=== PATIENT | female | born 1935 | race Caucasian/White ===

== ENCOUNTER 2016-09-07 13:31 | Emergency (ER) | payer OTHER ==
[~2016-09-07 13:31] MED LIST: AUGMENTIN250 MG PO; AZITHROMYCIN250 MG PO; CYMBALTA 30MG C30 MG PO; HYDRALAZINE25 MG PO; LASIX20 MG PO; NAMENDA 10MG TA10 MG PO; SEROQUEL 25MG T25 MG PO; TRANDATE100 MG PO
[2016-09-07 14:05] LABS: BASOPHIL 0.7 % (0-2); EOSINOPHIL 7.3 % (0-7); HCT 35.7 % (37.0-47.0); HGB 11.9 g/dl (12.5-16.0); LYMPHOCYTE 25.3 % (15-48); MCH 29.4 pg (25.0-31.0); MCHC 33.3 g/dL (32.0-36.0); MCV 88.1 fL (78.0-100.0); MONOCYTE 11.5 % (0-12); MPV 8.7 fL (6.0-9.5); NEUTROPHIL 55.2 % (41-80); PLT 418 K/uL (150-400); RBC 4.05 M/uL (4.20-5.40); RDW 12.9 % (11.5-14.0); WBC 6.8 K/uL (4.0-10.5)
[2016-09-07 14:15] LABS: INR 0.97 (0.9-1.2); PROTHROMBIN TIME 12.5 SECONDS (11.7-14.0); PTT 29.5 SECONDS (23.2-31.4)
[2016-09-07 14:26] LABS: ALBUMIN 4.1 g/dL (3.4-4.8); BILIRUBIN - TOTAL 0.2 mg/dL (0.1-1.0); CREATININE 1.3 mg/dL (0.5-1.0); GLOBULIN (CALCULATION) 2.9 g/dL (2.2-4.2); POTASSIUM 4.9 mmol/L (3.5-5.1)
[2016-09-07 14:32] LABS: BILIRUBIN NEGATIVE (NEGATIVE); BLOOD NEGATIVE Ery/uL (NEGATIVE); CLARITY CLEAR (CLEAR); COLOR YELLOW (YELLOW); GLUCOSE (U) NORMAL (NORMAL); KETONE (U) NEGATIVE (NEGATIVE); LEUKOCYTES NEGATIVE Leu/uL (NEGATIVE); NITRITE NEGATIVE (NEGATIVE); PROTEIN NEGATIVE (NEGATIVE); SPECIFIC GRAVITY <=1.005 (1.001-1.030); UROBILINOGEN 0.2 mg/dL (0.2-1.0)
== END 2016-09-07 15:09 | disposition home or self-care (01) ==
LOC: FER 13:31
PROVIDERS: Emergency Medicine
DX: R41.82 Altered mental status, unspecified (principal); F03.90 Unspecified dementia, unspecified severity, without behavioral disturbance, psychotic disturbance, mood disturbance, and anxiety; I10 Essential (primary) hypertension; F32.9 Major depressive disorder, single episode, unspecified
CPT/HCPCS: 36415; 70450; 71010; 72125; 80053; 81003; 84484; 85025; 85610; 85730; 93005